=== PATIENT | female | born 1980 | race Asian ===

== ENCOUNTER 2016-11-09 14:16 | Emergency (ER) | payer MEDICAID ==
[2016-11-09 14:21] VITALS: BP 113/64
--- NOTE | 2016-11-09 14:53 | ER Document Report ---
ED Medical Screen (RME) - General Stated Complaint: THUMB INJURY Notes: Patient states she injured her right thumb this morning. [place] a pop. Patient is able to move thumb. Pain is at base of right thumb. I have greeted and performed a rapid initial assessment of this patient. A comprehensive ED assessment and evaluation of the patient, analysis of test results and completion of the medical decision making process will be conducted by additional ED providers. TRAVEL OUTSIDE OF THE [place] IN LAST 30 DAYS: No - Related Data Allergies/Adverse Reactions: No Known Allergies Allergy (Verified 11/09/16 14:52) Past Medical History Pulmonary Medical History: Reports: Hx Asthma - Pediatric Renal/ Medical History: Reports: Hx Kidney Stones Past Surgical History: Reports: Hx Tubal Ligation - Immunizations Hx Diphtheria, Pertussis, Tetanus Vaccination: No Physical Exam - Vital signs Vitals: Temp Pulse Resp BP Pulse Ox 97.5 F 88 14 113/64 100 11/09/16 14:20 11/09/16 14:20 11/09/16 14:20 11/09/16 14:20 11/09/16 14:20 - Extremities Notes: Tenderness to base of right thumb. No bruising or edema noted. Neurovascular and sensation intact. Course - Vital Signs Vital signs: Temp Pulse Resp BP Pulse Ox 97.5 F 88 14 113/64 100 11/09/16 14:20 11/09/16 14:20 11/09/16 14:20 11/09/16 14:20 11/09/16 14:20
[2016-11-09] MEDS ORDERED: HYDROCODONE/ACETAMINOPHEN 5-325 MG TABLET PO ONE (18:19)
--- NOTE | 2016-11-09 18:20 | ER Document Report ---
ED Hand/Wrist Injury - General Chief Complaint: Thumb Injury Stated Complaint: THUMB INJURY Time seen by provider: 18:16 Mode of Arrival: Ambulatory Information source: Patient Notes: 36-year-old female presents to ED for injury to her right thumb this morning. She states she was walking outside and fell landing on her from with pain to the base of her right thumb. No swelling or bruising noted at this time. TRAVEL OUTSIDE OF THE [place] IN LAST 30 DAYS: No - HPI Injury to: Thumb - Right Onset: This morning Where: Home Timing: Still present Quality of pain: Achy Severity: Moderate Pain Level: 4 Context: Fall - Related Data Allergies/Adverse Reactions: No Known Allergies Allergy (Verified 11/09/16 14:52) Past Medical History - General Information source: Patient - Social History Smoking Status: Never Smoker Cigarette use (# per day): No Chew tobacco use (# tins/day): No Smoking Education Provided: No Frequency of alcohol use: None Drug Abuse: None Occupation: housekeeping Lives with: Spouse/Significant other Family History: DM, Malignancy Patient has suicidal ideation: No Patient has homicidal ideation: No - Past Medical History Cardiac Medical History: Reports: None Pulmonary Medical History: Reports: Hx Asthma - Pediatric EENT Medical History: Reports: None Neurological Medical History: Reports: None Endocrine Medical History: Reports: Other - Gestational diabetes but not any other time Renal/ Medical History: Reports: Hx Kidney Stones Malignancy Medical History: Reports: None GI Medical History: Reports: None Musculoskeltal Medical History: Reports None Skin Medical History: Reports None Psychiatric Medical History: Reports: None Traumatic Medical History: Reports: None Infectious Medical History: Reports: None Past Surgical History: Reports: Hx Tubal Ligation - Immunizations Hx Diphtheria, Pertussis, Tetanus Vaccination: No Hx Pneumococcal Vaccination: 08/02/11 Review of Systems - Review of Systems Constitutional: No symptoms reported EENT: No symptoms reported Cardiovascular: No symptoms reported Respiratory: No symptoms reported Gastrointestinal: No symptoms reported Genitourinary: No symptoms reported Female Genitourinary: No symptoms reported Musculoskeletal: Other - Right thumb injury with pain Skin: No symptoms reported Hematologic/Lymphatic: No symptoms reported Neurological/Psychological: No symptoms reported -: Yes All other systems reviewed and negative Physical Exam - Vital signs Vitals: Temp Pulse Resp BP Pulse Ox 97.5 F 88 14 113/64 100 11/09/16 14:20 11/09/16 14:20 11/09/16 14:20 11/09/16 14:20 11/09/16 14:20 Interpretation: Normal - General General appearance: Appears well, Alert - HEENT Head: Normocephalic, Atraumatic Eyes: Normal Pupils: PERRL - Respiratory Respiratory status: No respiratory distress Chest status: Nontender Breath sounds: Normal Chest palpation: Normal - Cardiovascular Rhythm: Regular Heart sounds: Normal auscultation Murmur: No - Abdominal Inspection: Normal Distension: No distension Bowel sounds: Normal Tenderness: Nontender Organomegaly: No organomegaly - Back Back: Normal, Nontender - Extremities General upper extremity: Normal inspection, Normal color, Normal temperature General lower extremity: Normal inspection, Nontender, Normal color, Normal ROM , Normal temperature, Normal weight bearing. No: Greg's sign Hand: Tender - Right thumb, Ecchymosis - Minimal, No evidence of human bite, No evidence of FB, Other - Right thumb injury this morning minimal and ecchymosis no swelling pain with range of motion.. No: Abrasion, Deformity, Dislocation, Instability, Laceration, Nail injury, Swelling, Tendon deficit - Neurological Neuro grossly intact: Yes Cognition: Normal Orientation: AAOx4 Shelli Coma Scale Eye Opening: Spontaneous Shelli Coma Scale Verbal: Oriented Shelli Coma Scale Motor: Obeys Commands [place] Coma Scale Total: 15 Speech: Normal Motor strength normal: LUE, RUE, LLE, RLE Sensory: Normal - Psychological Associated symptoms: Normal affect, Normal mood - Skin Skin Temperature: Warm Skin Moisture: Dry Skin Color: Normal Course - Re-evaluation Re-evalutation: 11/09/16 18:44 Reviewed x-ray with patient. Patient was given a [place] in the emergency room and instructed on use of ibuprofen for pain patient encouraged to ice and elevate the finger. Patient instructed to follow-up with primary doctor. - Vital Signs Vital signs: Temp Pulse Resp BP Pulse Ox 97.5 F 88 14 113/64 100 11/09/16 14:20 11/09/16 14:20 11/09/16 14:20 11/09/16 14:20 11/09/16 14:20 - Diagnostic Test Radiology reviewed: Image reviewed, Reports reviewed Discharge - Discharge Clinical Impression: Pain of right thumb Condition: Stable Disposition: HOME, SELF-CARE Instructions: Family Physicians / Practices Additional Instructions: He was seen today for the right thumb pain after falling landing on your thumb. There is no fracture or dislocation to the thumb. ICE & ELEVATION: Apply ice packs frequently against the painful area. Many different schedules are recommended, such as "20 minutes on, 20 minutes off" or "one hour ice, two hours rest." If you need to work, you may need to go longer between ice treatments. You should plan to have the area ice packed AT LEAST one- fourth of the time. The ice should be applied over the wrap, tape, or splint, or over a layer of cloth -- not directly against the skin. Some ice bags have a built-in cloth and can be put directly on the skin. Your injured part should be elevated as much as possible over the next 48 hours. Try to keep the injury above the level of the heart. Avoid use of the injured area. Elevation and rest will decrease the swelling. USE OF LIOB-SIM-YVMGHTG IBUPROFEN: Ibuprofen (Advil, Nuprin, Medipren, Motrin IB) is a medication for fever and pain control. In addition, it has anti- inflammatory effects which may be beneficial, especially in the treatment of injuries. It's best to take ibuprofen with food. Persons with ulcer disease or allergy to aspirin should notify their physician of this before taking ibuprofen. Ibuprofen can be given every four to six hours, for a total of four doses daily. Age Pain or fever dose Antiinflammatory dose 6-8 yr 200 mg (1 tab) 200 mg (1 tab) 9-11 yr 200 mg (1 tab) 200-400 mg (1-2 tab) 11-14 yr 200-400 mg (1-2 tab) 400 mg (2 tab) 15-adult 400 mg (2 tab) 600 mg (3 tab) ORAL NARCOTIC MEDICATION: You have been given a norco for pain control. This medication is a narcotic. It's best taken with food, as nausea can result if taken on an empty stomach. Don't operate machinery or drive within six hours of taking this medication. Do not combine this medicine with alcohol, or with any medication which can cause sedation (such as cold tablets or sleeping pills) unless you get permission from the physician. Narcotics tend to cause constipation. If possible, drink plenty of fluids and eat a diet high in fiber and fruits. Please be aware that prescription narcotics also have the potential for abuse. People become addicted to these medications because of the general sense of wellbeing that they induce. This feeling along with a significant reduction in tension, anxiety, and aggression provides a stimulating seductive quality to these drugs. Once your pain is under control, we encourage you to discard your unused narcotics. FOLLOW-UP CARE: If you have been referred to a physician for follow-up care, call the physician s office for an appointment as you were instructed or within the next two days. If you experience worsening or a significant change in your symptoms, notify the physician immediately or return to the Emergency Department at any time for re-evaluation. Forms: Return to Work
== END 2016-11-09 18:30 | disposition home or self-care (01) ==
LOC: ER 14:16
DX: S60.011A Contusion of right thumb without damage to nail, initial encounter (principal); M79.644 Pain in right finger(s); W19.XXXA Unspecified fall, initial encounter; Y92.008 Other place in unspecified non-institutional (private) residence as the place of occurrence of the external cause
CPT/HCPCS: 99283

== ENCOUNTER 2016-12-27 15:38 | Emergency (ER) | payer MEDICAID ==
[2016-12-27 15:48] VITALS: BP 116/58
[2016-12-27 18:35] LABS: ABSOLUTE BASOPHILS # (AUTO) 0.1 10^3/uL (0.0-0.2); ABSOLUTE EOSINOPHILS # (AUTO) 0.1 10^3/uL (0.0-0.6); ABSOLUTE LYMPHOCYTES (AUTO) 2.1 10^3/uL (0.5-4.7); ABSOLUTE MONOCYTES (AUTO) 0.5 10^3/uL (0.1-1.4); ABSOLUTE NEUT (AUTO) 5.6 10^3/uL (1.7-8.2); BASOPHILS % (AUTO) 0.9 % (0-2); EOSINOPHILS % (AUTO) 1.7 % (0-6); HEMATOCRIT 36.5 % (36.0-47.0); HEMOGLOBIN 12.6 g/dL (12.0-15.5); HGB HCT DIFFERENCE 1.3; LYMPHOCYTES % (AUTO) 25.1 % (13-45); MEAN CORPUSCULAR HEMOGLOBIN 31.6 pg (27.0-33.4); MEAN CORPUSCULAR HGB CONC 34.4 g/dL (32.0-36.0); MEAN CORPUSCULAR VOLUME 92 fl (80-97); MONOCYTES % (AUTO) 5.4 % (3-13); RED BLOOD COUNT 3.97 10^6/uL (3.72-5.28); RED CELL DISTRIBUTION WIDTH 13.2 % (11.5-14.0); SEGMENTED NEUTROPHILS % (AUTO) 66.9 % (42-78); WHITE BLOOD COUNT 8.4 10^3/uL (4.0-10.5)
[2016-12-27 18:46] LABS: APPEARANCE,URINE CLEAR; BILIRUBIN,URINE NEGATIVE (NEGATIVE); GLUCOSE, URINE NEGATIVE (NEGATIVE); KETONES,URINE NEGATIVE (NEGATIVE); LEUKOCYTE ESTERASE,URINE NEGATIVE (NEGATIVE); NITRITE,URINE NEGATIVE (NEGATIVE); PROTEIN,URINE NEGATIVE (NEGATIVE); URINE SPECIFIC GRAVITY 1.009; UROBILINOGEN,URINE NEGATIVE mg/dL (<2.0)
[2016-12-27 18:49] LABS: ALANINE AMINOTRANSFERASE 32 U/L (9-52); ALKALINE PHOSPHATASE 52 U/L (38-126); ANION GAP 10 (5-19); ASPARTATE AMINO TRANSFERASE 19 U/L (14-36); BILIRUBIN,DIRECT 0.3 mg/dL (0.0-0.4); BILIRUBIN,TOTAL 0.6 mg/dL (0.2-1.3); BLOOD UREA NITROGEN 12 mg/dL (7-20); CARBON DIOXIDE 27 mmol/L (22-30); CHLORIDE 105 mmol/L (98-107); CREATININE RESULT 0.63 mg/dL (0.52-1.25); GLUCOSE 109 mg/dL (75-110); POTASSIUM 3.9 mmol/L (3.6-5.0); SODIUM 142.3 mmol/L (137-145); TOTAL PROTEIN 7.2 g/dL (6.3-8.2)
[2016-12-27] MEDS ORDERED: ONDANSETRON ODT 4 MG TAB (6 TAB/DSPK) PO PRN (18:55)
--- NOTE | 2016-12-27 18:57 | ER Document Report ---
ED GI/ - General Chief Complaint: Abdominal Pain Stated Complaint: ABDOMINAL PAIN Time seen by provider: 18:56 Mode of Arrival: Ambulatory Information source: Patient TRAVEL OUTSIDE OF THE [place] IN LAST 30 DAYS: No - HPI Patient complains to provider of: Vomiting Onset: Yesterday Timing/Duration: Sudden Quality of pain: No pain Associated symptoms: Nausea Exacerbated by: Denies Relieved by: Denies Notes: 12/27/16 20:08 Patient is a 36-year-old female with no past medical history who presents to the emergency room complaining of vomiting that started yesterday evening, she had 3 episodes of vomiting, abdominal pain, no diarrhea, no fever or chills, no sick contacts, no urinary symptoms, since being in the emergency room she ate a bag of [place] chips and drank Pepsi without any difficulty, and is requesting note to return to work tomorrow as she missed work today - Related Data Allergies/Adverse Reactions: No Known Allergies Allergy (Verified 12/27/16 15:45) Past Medical History - General Information source: Patient - Social History Smoking Status: Never Smoker Family History: Reviewed & Not Pertinent Patient has suicidal ideation: No Patient has homicidal ideation: No Pulmonary Medical History: Reports: Hx Asthma - Pediatric Renal/ Medical History: Reports: Hx Kidney Stones. Denies: Hx Peritoneal Dialysis Past Surgical History: Reports: Hx Tubal Ligation - Immunizations Hx Diphtheria, Pertussis, Tetanus Vaccination: No Hx Pneumococcal Vaccination: 08/02/11 Review of Systems - Review of Systems Constitutional: No symptoms reported EENT: No symptoms reported Cardiovascular: No symptoms reported Respiratory: No symptoms reported Gastrointestinal: Nausea, Vomiting Genitourinary: No symptoms reported Female Genitourinary: No symptoms reported Musculoskeletal: No symptoms reported Skin: No symptoms reported Hematologic/Lymphatic: No symptoms reported Neurological/Psychological: No symptoms reported -: Yes All other systems reviewed and negative Physical Exam - Vital signs Vitals: Temp Pulse Resp BP Pulse Ox 98.2 F 87 14 116/58 L 98 12/27/16 15:45 12/27/16 15:45 12/27/16 15:45 12/27/16 15:45 12/27/16 15:45 Interpretation: Normal - General General appearance: Appears well, Alert - HEENT Head: Normocephalic, Atraumatic Eyes: Normal Pupils: PERRL - Respiratory Respiratory status: No respiratory distress Chest status: Nontender Breath sounds: Normal Chest palpation: Normal - Cardiovascular Rhythm: Regular Heart sounds: Normal auscultation Murmur: No - Abdominal Inspection: Normal Distension: No distension Bowel sounds: Normal Tenderness: Nontender Organomegaly: No organomegaly - Back Back: Normal, Nontender - Extremities General upper extremity: Normal inspection, Nontender, Normal color, Normal ROM , Normal temperature General lower extremity: Normal inspection, Nontender, Normal color, Normal ROM , Normal temperature, Normal weight bearing. No: Greg's sign - Neurological Neuro grossly intact: Yes Cognition: Normal Orientation: AAOx4 [place] Coma Scale Eye Opening: Spontaneous Shelli Coma Scale Verbal: Oriented Shelli Coma Scale Motor: Obeys Commands [place] Coma Scale Total: 15 Speech: Normal Motor strength normal: LUE, RUE, LLE, RLE Sensory: Normal - Psychological Associated symptoms: Normal affect, Normal mood - Skin Skin Temperature: Warm Skin Moisture: Dry Skin Color: Normal Course - Re-evaluation Re-evalutation: 12/27/16 20:09 Laboratory findings unremarkable and discussed with patient at bedside, physical exam findings unremarkable, she is tolerating by mouth intake at time of my initial evaluation, patient will be discharged with a Zofran dose pack and instructions for follow-up, advised to return if symptoms worsen, patient acknowledges understanding and agreement with this plan - Vital Signs Vital signs: Temp Pulse Resp BP Pulse Ox 98.2 F 87 14 116/58 L 98 12/27/16 15:45 12/27/16 15:45 12/27/16 15:45 12/27/16 15:45 12/27/16 15:45 - Laboratory Result Diagrams: 12/27/16 18:07 12/27/16 18:07 Discharge - Discharge Clinical Impression: Nausea and vomiting Qualifiers: Vomiting type: unspecified Vomiting Intractability: non-intractable Qualified Code(s): R11.2 - Nausea with vomiting, unspecified Condition: Stable Disposition: HOME, SELF-CARE Instructions: Abdominal Pain ([facility]) Additional Instructions: Follow up with your primary care provider in one to 2 days. Return to the emergency room immediately if symptoms worsen or any additional concerns. Forms: Return to Work
== END 2016-12-27 20:03 | disposition home or self-care (01) ==
LOC: ER 15:38
DX: R11.2 Nausea with vomiting, unspecified (principal); R10.9 Unspecified abdominal pain
CPT/HCPCS: 36415; 80053; 81001; 81025; 83690; 85025; 99284

== ENCOUNTER 2017-03-05 18:59 | Emergency (ER) | payer SELFPAY ==
[2017-03-05] MEDS ORDERED: HYDROCORTISONE ACETATE 25 MG SUPP.RECT PR ONE (19:50)
--- NOTE | 2017-03-05 19:55 | ER Document Report ---
HPI - HPI Patient complains to provider of: hemorrhoids Onset: Other - 3rd hemorrhoid in 2 few months Quality of pain: Achy Severity: Severe Pain Level: 4 Context: Patient presents emergency department with complaints of a third hemorrhoid in the past 2 months. She reports today while she was at work she had a bowel movement and noted blood in the bowel movement. Reports she had a normal bowel movement. She reports pain when sitting. She has not tried any over-the- counter hemorrhoid medication. She reports she had hemorrhoids when she was . She complains of low back pain today. Took tylenol pm but is still hurting. Denies fever vomiting diarrhea. Denies history of constipation. Associated Symptoms: None Exacerbated by: Denies Relieved by: Denies Similar symptoms previously: Yes Recently seen / treated by doctor: No - REPRODUCTIVE LMP: 25 February Reproductive: DENIES: : - DERM Skin Color: Normal Past Medical History - General Information source: Patient Last Menstrual Period: 02/25/17 - Social History Smoking Status: Unknown if Ever Smoked Cigarette use (# per day): No Frequency of alcohol use: None Drug Abuse: None Family History: Reviewed & Not Pertinent Patient has suicidal ideation: No Patient has homicidal ideation: No Pulmonary Medical History: Reports: Hx Asthma - Pediatric Renal/ Medical History: Reports: Hx Kidney Stones. Denies: Hx Peritoneal Dialysis Past Surgical History: Reports: Hx Tubal Ligation - Immunizations Hx Diphtheria, Pertussis, Tetanus Vaccination: No Hx Pneumococcal Vaccination: 08/02/11 Vertical Provider Document - CONSTITUTIONAL Agree With Documented VS: Yes Exam Limitations: No Limitations General Appearance: WD/WN, Mild Distress - winces during rectal - INFECTION CONTROL TRAVEL OUTSIDE OF THE [place] IN LAST 30 DAYS: No - HEENT HEENT: Atraumatic, Normocephalic - NECK Neck: Normal Inspection, Supple. negative: Lymphadenopathy-Left, Lymphadenopathy-Right - RESPIRATORY Respiratory: Breath Sounds Normal, No Respiratory Distress O2 Sat by Pulse Oximetry: 98 - CARDIOVASCULAR Cardiovascular: Regular Rate, Regular Rhythm - GI/ABDOMEN Gastrointestinal: Abdomen Soft, Abdomen Non-Tender - BACK Back: Normal Inspection - no obvious deformity, no swelling, no erythema, no warmth, good distal movement and sensation - MUSCULOSKELETAL/EXTREMETIES Musculoskeletal/Extremeties: VINNY COLLADO - NEURO Level of Consciousness: Awake, Alert, Appropriate Motor/Sensory: No Motor Deficit - DERM Integumentary: Warm, Dry Course - Re-evaluation Re-evalutation: 03/05/17 19:57 Rectal completed external hemorrhoids noted no thrombosed hemorrhoids, no active bleeding occult blood card sent to lab 03/05/17 21:44 stool negative - Vital Signs Vital signs: Temp Pulse Resp BP Pulse Ox 98.1 F 99 16 117/73 98 03/05/17 19:12 03/05/17 19:12 03/05/17 19:12 03/05/17 19:12 03/05/17 19:12 Discharge - Discharge Clinical Impression: Hemorrhoids Qualifiers: Hemorrhoid type: other Qualified Code(s): K64.8 - Other hemorrhoids Condition: Stable Disposition: HOME, SELF-CARE Instructions: Hemorrhoids ([facility]) Additional Instructions: *You have been evaluated for hemorrhoids *Apply medication as prescribed *Sitz baths for comfort *Follow up with a cognos for evaluation this week *Return to ED for worsening condition, changes, needs Prescriptions: Pramoxine HCl/Mineral Oil/Znox [Anusol Ointment] 24 gm RC TID #30 oint..gm.
[2017-03-05] MEDS ORDERED: IBUPROFEN 800 MG TABLET PO ONE (20:09)
[2017-03-05 20:33] VITALS: BP 107/74
== END 2017-03-05 20:26 | disposition home or self-care (01) ==
LOC: ER 18:59
DX: K64.4 Residual hemorrhoidal skin tags (principal); K92.1 Melena; M54.5 Low back pain
CPT/HCPCS: 99283; 82272; J3490

== ENCOUNTER 2017-05-27 08:15 | Emergency (ER) | payer SELFPAY ==
--- NOTE | 2017-05-27 08:58 | ER Document Report ---
ED ENT - General Mode of Arrival: Ambulatory Information source: Patient TRAVEL OUTSIDE OF THE [place] IN LAST 30 DAYS: No - HPI Patient complains to provider of: Other - see narrative Onset: Other - x2 days Associated symptoms: Other - see above - General Chief Complaint: Sore Throat Stated Complaint: SORE THROAT Time Seen by Provider: 05/27/17 08:44 Notes: Patient is a 37-year-old female that presents to the emergency department today with complaints of generalized body aches with an associated headache, shortness of breath, and nasal congestion of a 2 day duration. Patient states she has tried [id number] Excedrin with minimal relief. Patient states she has a history of asthma and pneumonia. Patient states she feels like she is losing her voice. Patient states that it also hurts to breathe. Patient denies any earaches, sweats, chills, or fevers. (SARAH SMITH) - Related Data Allergies/Adverse Reactions: No Known Allergies Allergy (Verified 05/27/17 08:17) Past Medical History - General Information source: Patient - Social History Smoking Status: Never Smoker Cigarette use (# per day): No Frequency of alcohol use: None Drug Abuse: None Lives with: Family Family History: Reviewed & Not Pertinent Pulmonary Medical History: Reports: Hx Asthma - Pediatric, Hx Pneumonia Renal/ Medical History: Reports: Hx Kidney Stones Past Surgical History: Reports: Hx Tubal Ligation - Immunizations Hx Diphtheria, Pertussis, Tetanus Vaccination: No Hx Pneumococcal Vaccination: 08/02/11 Review of Systems - Review of Systems Constitutional: denies: Chills, Diaphoresis, Fever EENT: See HPI, Nose congestion. denies: Ear pain Cardiovascular: No symptoms reported Respiratory: See HPI, Hurts to breathe, Short of breath Gastrointestinal: No symptoms reported Genitourinary: No symptoms reported Female Genitourinary: No symptoms reported Musculoskeletal: See HPI, Joint pain - generalized, diffuse Skin: No symptoms reported Hematologic/Lymphatic: No symptoms reported Neurological/Psychological: See HPI, Headaches -: Yes All other systems reviewed and negative Physical Exam - Vital signs Vitals: Temp Pulse Resp BP Pulse Ox 97.7 F 86 20 113/64 97 05/27/17 08:18 05/27/17 08:18 05/27/17 08:18 05/27/17 08:18 05/27/17 08:18 - Notes Notes: PHYSICAL EXAM GENERAL: Alert, interacts well. No acute distress. HEAD: Normocephalic, atraumatic. EYES: Pupils equal, round, and reactive to light. Extraocular movements intact. ENT: Oral mucosa moist, tongue midline. TM bulging bilaterally, no erythema or purulent drainage. Left sided turbinate edema. No oropharynx cobblestoning. NECK: Full range of motion. Supple. Trachea midline. LUNGS: Trace wheezing with forced expiration, no rales or rhonchi. No respiratory distress. HEART: Mildly tachycardic, regular rhythm. No murmurs, gallops, or rubs. ABDOMEN: Obese. Soft, non-tender. Non-distended. Bowel sounds present in all 4 quadrants. EXTREMITIES: Moves all 4 extremities spontaneously. NEUROLOGICAL: Alert and oriented x3. Normal speech. PSYCH: Normal affect, normal mood. SKIN: Warm, dry, normal turgor. No rashes or lesions noted. (SARAH SMITH) Course - Re-evaluation Re-evalutation: 05/27/17 09:32 Chest x-ray shows no sign of pneumonia. Patient given albuterol inhaler. Patient will be treated for viral upper respiratory infection with nasal steroids, albuterol inhaler and Tessalon Perles. Counseled to use ibuprofen and acetaminophen for muscle aches and headaches. Discharged home. (ALYSSA RUCKER) - Vital Signs Vital signs: Temp Pulse Resp BP Pulse Ox 97.6 F 86 17 109/64 100 05/27/17 10:19 05/27/17 10:19 05/27/17 10:19 05/27/17 10:19 05/27/17 10:19 Discharge - Discharge Clinical Impression: Viral upper respiratory tract infection with cough Condition: Stable Disposition: HOME, SELF-CARE Additional Instructions: Bronchitis with Bronchospasm (Wheezing) You have bronchitis with bronchospasm (wheezing). Sometimes people develop wheezing with a chest cold. This occurs either because of an underlying tendency toward asthma or because the virus itself irritates the bronchial tubes. This irritation causes cough, shortness of breath, and wheezing. Emergency treatment of bronchospasm may include adrenaline shots or bronchodilator aerosol. You may feel lightheaded and have a rapid pulse for an hour or two. Rest and get plenty of fluids. At home, we'll treat you with a bronchodilator inhaler. Corticosteroids may be required for some patients. Until you recover, avoid chemical fumes, dusts, pollens, and exercising in very cold or dry air. If you smoke, stop now! Most cases of bronchitis get better without antibiotics. Increase your fluid intake. A cool mist humidifier may make your lungs more comfortable. An expectorant (cough medicine that loosens phlegm) can help. Repeated episodes of bronchitis and bronchospasm may result in lung damage -- for example, chronic bronchitis, recurrent pneumonias, or emphysema. If you develop a fever, increased wheezing, chest pain, or severe shortness of breath, you should contact the doctor immediately. Please use ibuprofen (Motrin or Advil) 600-800 mg every 8 hours as needed for pain or fever. You may also use acetaminophen (Tylenol) 1000 mg every 4-6 hours as needed for pain or fever. Please be aware that many medications contain acetaminophen, do not exceed a total of 1000 mg of acetaminophen every 6 hours. Please use the inhaler 2 puffs as needed every 4 hours. Prescriptions: Benzonatate [Tessalon Perles 100 mg Capsule] 100 mg PO Q8HP PRN #40 capsule PRN Reason: Forms: Parent Work Note, Return to Work Referrals: ANDRES HSU MD [ACTIVE STAFF] - Follow up in 1 week Scribe Attestation: 05/27/17 14:25 I personally performed the services described in the documentation, reviewed and edited the documentation which was dictated to the scribe in my presence, and it accurately records my words and actions. (ALYSSA RUCKER) Scribe Documentation - Scribe Written by Mirta:: Mirta Pace, 05/27/2017 0945 acting as scribe for :: Candis
[2017-05-27] MEDS ORDERED: ALBUTEROL SULFATE HFA (90 MCG/PUFF) 8 GM MDI (1 MDI/ER DISP) IH ONE (09:01)
--- NOTE | 2017-05-27 09:25 | RADIOLOGY REPORT (SQ) ---
EXAM DESCRIPTION: CHEST PA/LAT COMPLETED DATE/TIME: 05/27/2017 9:15 am REASON FOR STUDY: cough, wheeze COMPARISON: Two-view chest 11/28/2015, 01/29/2015 EXAM PARAMETERS: NUMBER OF VIEWS: two views TECHNIQUE: Digital Frontal and Lateral radiographic views of the chest acquired. RADIATION DOSE: NA LIMITATIONS: none FINDINGS: LUNGS AND PLEURA: No opacities, masses or pneumothorax. No pleural effusion. MEDIASTINUM AND HILAR STRUCTURES: No masses or contour abnormalities. HEART AND VASCULAR STRUCTURES: Heart normal size. No evidence for failure. BONES: No acute findings. HARDWARE: None in the chest. OTHER: No other significant finding. IMPRESSION: NO SIGNIFICANT RADIOGRAPHIC FINDING IN THE CHEST. TECHNICAL DOCUMENTATION: JOB ID: [id number] [employer]- All Rights Reserved
[2017-05-27] MEDS ORDERED: KETOROLAC TROMETHAMINE 60 MG/2 ML SDV IM ONE (09:38)
[2017-05-27 10:24] VITALS: BP 109/64
== END 2017-05-27 10:19 | disposition home or self-care (01) ==
LOC: ER 08:15
DX: R05 Cough (principal); B34.9 Viral infection, unspecified; J06.9 Acute upper respiratory infection, unspecified; J02.9 Acute pharyngitis, unspecified; M79.1 Myalgia; R51 Headache; R06.02 Shortness of breath; R09.81 Nasal congestion; Z79.899 Other long term (current) drug therapy
CPT/HCPCS: 99283; 96372; 71020; J1885; J3490

== ENCOUNTER 2017-12-09 15:30 | Emergency (ER) | payer SELFPAY ==
[2017-12-09] MEDS ORDERED: LIDOCAINE 2% JELLY 5 ML TUBE TOP ONE (17:34)
--- NOTE | 2017-12-09 17:34 | ER Document Report ---
HPI - HPI Pain Level: 4 Context: An issue with her hemorrhoids. Patient states that she has had them on and off in the past over the past 3 days this 1 has become more painful with more pressure. She denies any bright red blood per rectum. States that she has been doing warm soaks and [id number] preparation H cream at home. - REPRODUCTIVE Reproductive: DENIES: : Past Medical History - Social History Smoking Status: Smoker,Current Status Unk Family History: Reviewed & Not Pertinent Pulmonary Medical History: Reports: Hx Asthma - Pediatric, Hx Pneumonia Renal/ Medical History: Reports: Hx Kidney Stones. Denies: Hx Peritoneal Dialysis Past Surgical History: Reports: Hx Tubal Ligation - Immunizations Hx Diphtheria, Pertussis, Tetanus Vaccination: No Hx Pneumococcal Vaccination: 08/02/11 Vertical Provider Document - CONSTITUTIONAL Agree With Documented VS: Yes Notes: PHYSICAL EXAM GENERAL: Alert, interacts well. ABDOMEN: Soft, nondistended, nontender. No guarding, rebound, or rigidity.. Bowel sounds present in all 4 quadrants. Rectal: Patient with 1 external nontender hemorrhoids. Another smaller thrombosed external hemorrhoid that is tender to touch. NEUROLOGICAL: Alert and oriented x4. Normal speech. PSYCH: Normal affect, normal mood. SKIN: Warm, dry, normal turgor. No rashes or lesions noted. - INFECTION CONTROL TRAVEL OUTSIDE OF THE [place] IN LAST 30 DAYS: No Course - Re-evaluation Re-evalutation: 12/09/17 18:19 Presentation is most consistent with uncomplicated external thrombosed hemorrhoids. Site was I&D with complete relief of her pain. Patient's abdominal exam is otherwise benign. I do not suspect a more significant lower GI bleed or upper GI bleed based on history, vitals, normal hemoglobin, and patient's overall well appearance. The patient will be discharged home on conservative treatment recommendations as well as recommendations for close outpatient follow-up. Return precautions have been reviewed. - Vital Signs Vital signs: Temp Pulse Resp BP Pulse Ox 98.0 F 93 18 111/66 99 12/09/17 15:55 12/09/17 15:55 12/09/17 15:55 12/09/17 15:55 12/09/17 15:55 Discharge - Discharge Clinical Impression: Thrombosed hemorrhoids Condition: Good Disposition: HOME, SELF-CARE Additional Instructions: You were seen today for hemorrhoids. The best treatment is to avoid straining while having bowel moments, avoiding heavy lifting, or any other activity that causes you to bear down forcefully. You need to make sure that your stools are soft and should start taking Docusate 200mg in the morning and at night until your stools are very soft and you can have a bowel movement without any straining. You can also soak in warm water, apply topical hemorrhoid cream that can be purchased at the store, and take tylenol or ibuprofen per box instructions as needed for pain. Please follow-up with your primary doctor. Return if you begin to have persistent bleeding, worsening pain, abdominal pain , fever >101, or any other symptoms that are concerning to you. Prescriptions: Hydrocortisone Acetate [Anusol Hc 25 mg Supp.rect] 1 supp.rect TN BID #14 supp.rect Referrals: SEDA REED MD [ACTIVE STAFF] - Follow up in 3-5 days
[2017-12-09 18:43] VITALS: BP 132/88
== END 2017-12-09 18:43 | disposition home or self-care (01) ==
LOC: ER 15:30
DX: K64.5 Perianal venous thrombosis (principal); K64.4 Residual hemorrhoidal skin tags
CPT/HCPCS: 99283

== ENCOUNTER 2020-01-12 22:24 | Emergency (ER) | payer OTHER ==
[2020-01-12] MEDS ORDERED: HYDROCODONE/ACETAMINOPHEN 5-325 MG TABLET PO ONE (22:47)
--- NOTE | 2020-01-12 22:50 | ER Document Report ---
ED Medical Screen (RME) - General Chief Complaint: Abdominal Pain Stated Complaint: FLANK PAIN Time Seen by Provider: 01/12/20 22:47 Mode of Arrival: Ambulatory Information source: Patient Notes: 39-year-old female presented to ED for complaint of left pelvic and back pain. She states she started 3 days ago. She states she has a history of kidney stones. She states her last menstrual period was December 28. She states she went to her primary care doctor and they gave her some kind of medicine that started with a tea intake and she was told that if this did not help she was to come to the emergency room. She states she also took some Motrin 400 mg about an hour ago. Patient is alert oriented respirations regular nonlabored speaking in full sentences. She is moving all around in the chair. I have given her 1 [place] in the triage area for her pain. I have greeted and performed a rapid initial assessment of this patient. A comprehensive ED assessment and evaluation of the patient, analysis of test results and completion of medical decision making process will be conducted by an additional ED providers. TRAVEL OUTSIDE OF THE [place] IN LAST 30 DAYS: No - Related Data Allergies/Adverse Reactions: No Known Allergies Allergy (Verified 12/09/17 18:40) Past Medical History - Social History Frequency of alcohol use: None Drug Abuse: None Pulmonary Medical History: Reports: Hx Asthma - Pediatric, Hx Pneumonia Renal/ Medical History: Reports: Hx Kidney Stones. Denies: Hx Peritoneal Dialysis Past Surgical History: Reports: Hx Tubal Ligation - Immunizations Hx Diphtheria, Pertussis, Tetanus Vaccination: No Physical Exam - Vital signs Vitals: Temp Pulse Resp BP Pulse Ox 98.2 F 97 20 117/67 99 01/12/20 22:28 01/12/20 22:28 01/12/20 22:28 01/12/20 22:28 01/12/20 22:28 Course - Vital Signs Vital signs: Temp Pulse Resp BP Pulse Ox 98.2 F 97 20 117/67 99 01/12/20 22:39 01/12/20 22:28 01/12/20 22:28 01/12/20 22:28 01/12/20 22:28
[2020-01-12] MEDS ORDERED: NORMAL SALINE 1000 ML 1,000 ML IV ONE (23:01)
--- NOTE | 2020-01-12 23:09 | ER Document Report ---
ED GI/ - General Mode of Arrival: Ambulatory Information source: Patient TRAVEL OUTSIDE OF THE [place] IN LAST 30 DAYS: No - HPI Patient complains to provider of: Flank pain - Probable kidney stone Onset: Other Timing/Duration: Gradual, Intermittent Quality of pain: No pain, Sharp, Throbbing Severity at maximum: Moderate Severity in ED: Moderate Pain Level: 3 Location: LLQ, Left flank Vaginal bleeding (Compared to normal period): None Associated symptoms: Other - Left flank pain. denies: Nausea, Vomiting Exacerbated by: Movement, Walking Relieved by: Denies Similar symptoms previously: Yes Recently seen / treated by doctor: Yes <CASEY KULKARNI - Last Filed: 01/13/20 00:24> <KILEY HERNDON - Last Filed: 01/13/20 05:02> - General Chief Complaint: Abdominal Pain Stated Complaint: FLANK PAIN Time Seen by Provider: 01/12/20 22:47 Notes: 9-year-old female presented to ED for complaint of left flank and abdominal pain. Started 3 days ago. She does seen by her primary care provider who gave her some kind of pain medication that starts with a T. She states she is not sure if it was tramadol or not. She states it was supposed to help her with the pain but he told her that if this did not relieve her pain she needed to go to the emergency room. She is alert oriented respirations regular nonlabored speaking in full sentences. She states her last menstrual period started on December 28. She states she did take ibuprofen about an hour before coming to the emergency room. (CASEY KULKARNI) - Related Data Allergies/Adverse Reactions: No Known Allergies Allergy (Verified 12/09/17 18:40) Past Medical History - General Information source: Patient - Social History Smoking Status: Never Smoker Frequency of alcohol use: None Drug Abuse: None Family History: Reviewed & Not Pertinent Patient has homicidal ideation: No - Past Medical History Cardiac Medical History: Reports: None Pulmonary Medical History: Reports: Hx Asthma - Pediatric, Hx Pneumonia EENT Medical History: Reports: None Neurological Medical History: Reports: None Endocrine Medical History: Reports: None Renal/ Medical History: Reports: Hx Kidney Stones Malignancy Medical History: Reports: None GI Medical History: Reports: None Musculoskeletal Medical History: Reports None Skin Medical History: Reports None Psychiatric Medical History: Reports: None Traumatic Medical History: Reports: None Infectious Medical History: Reports: None Past Surgical History: Reports: Hx Tubal Ligation - Immunizations Hx Diphtheria, Pertussis, Tetanus Vaccination: No Hx Pneumococcal Vaccination: 08/02/11 <CASEY KULKARNI - Last Filed: 01/13/20 00:24> Review of Systems - Review of Systems Constitutional: No symptoms reported EENT: No symptoms reported Cardiovascular: No symptoms reported Respiratory: No symptoms reported Gastrointestinal: No symptoms reported Genitourinary: Flank pain Female Genitourinary: No symptoms reported Musculoskeletal: No symptoms reported Skin: No symptoms reported Hematologic/Lymphatic: No symptoms reported Neurological/Psychological: No symptoms reported -: Yes All other systems reviewed and negative <CASEY KULKARNI - Last Filed: 01/13/20 00:24> Physical Exam - Vital signs Interpretation: Normal - General General appearance: Appears well, Alert - HEENT Head: Normocephalic, Atraumatic Eyes: Normal Pupils: PERRL - Respiratory Respiratory status: No respiratory distress Chest status: Nontender Breath sounds: Normal Chest palpation: Normal - Cardiovascular Rhythm: Regular Heart sounds: Normal auscultation Murmur: No - Abdominal Inspection: Normal Distension: No distension Bowel sounds: Normal Tenderness: Tender - Left lower left flank Organomegaly: No organomegaly - Back Back: Normal, Tender - Left flank, CVA tenderness - Left - Extremities General upper extremity: Normal inspection, Nontender, Normal color, Normal ROM, Normal temperature General lower extremity: Normal inspection, Nontender, Normal color, Normal ROM, Normal temperature, Normal weight bearing. No: Greg's sign - Neurological Neuro grossly intact: Yes Cognition: Normal Orientation: AAOx4 Shelli Coma Scale Eye Opening: Spontaneous [place] Coma Scale Verbal: Oriented Shelli Coma Scale Motor: Obeys Commands Shelli Coma Scale Total: 15 Speech: Normal Motor strength normal: LUE, RUE, LLE, RLE Sensory: Normal - Psychological Associated symptoms: Normal affect, Normal mood - Skin Skin Temperature: Warm Skin Moisture: Dry Skin Color: Normal <CASEY KULKARNI - Last Filed: 01/13/20 00:24> - Vital signs Vitals: Temp Pulse Resp BP Pulse Ox 98.2 F 97 20 117/67 99 01/12/20 22:28 01/12/20 22:28 01/12/20 22:28 01/12/20 22:28 01/12/20 22:28 Course - Laboratory Result Diagrams: 01/12/20 23:04 01/12/20 23:04 <CASEY KULKARNI - Last Filed: 01/13/20 00:24> - Laboratory Result Diagrams: 01/12/20 23:04 01/12/20 23:04 <KILEY HERNDON - Last Filed: 01/13/20 05:02> - Re-evaluation Re-evalutation: 01/13/20 00:24 Patient states she is still in pain from her 8 mm kidney stone. I have ordered morphine Toradol IV she has been ordered IV fluids. I did add some Flomax. Report given to INDERJIT Camargo. (CASEY KULKARNI) 01/13/20 04:57 Multiple re-evaluations have been done on this patient, additional rounds of IV pain medication have been given. Patient's pain is now under control. She has not had a fever, she has no leukocytosis and her urine does not appear infected. We have discussed extensively the fact that she may need lithotripsy or intervention by a urologist to help this kidney stone pass due to its size. Patient will be discharged home with very strict ED return precautions. She will be calling urology today to follow-up. She understands to return to the emergency department with worsening pain, development of fever or any other concerning symptoms. (KILEY HERNDON) - Vital Signs Vital signs: Temp Pulse Resp BP Pulse Ox 97.7 F 84 19 116/59 L 95 01/13/20 03:24 01/13/20 03:24 01/13/20 03:24 01/13/20 03:24 01/13/20 04:00 - Laboratory Laboratory results interpreted by me: 01/12/20 01/12/20 01/12/20 23:04 23:04 23:04 WBC 11.2 H Sodium 136.9 L Glucose 113 H Urine Blood MODERATE H Leukocyte Esterase Rfl SMALL H Discharge <CASEY KULKARNI - Last Filed: 01/13/20 00:24> <KILEY HERNDON - Last Filed: 01/13/20 05:02> - Discharge Clinical Impression: Kidney stone Condition: Stable Disposition: HOME, SELF-CARE Additional Instructions: Your symptoms should improve over the course of the next one week. If you continue to have pain for greater than one week or your pain is not controlled with the pain medications that you have been sent home with you need to return to the emergency department. Please also return if you develop fever, persistent vomiting, or any other symptoms that are concerning to you. You should take ibuprofen 600 mg every 6 hours and use the Percocet as prescribed only for pain not controlled by ibuprofen. You are also been sent home with a medication called Flomax to help pass the stone. You've been given Zofran to assist with nausea. Please follow-up with urology call them today, let them know you were seen in the emergency department and have a 8 mm kidney stone. Prescriptions: Tamsulosin HCl [Flomax] 0.4 mg PO DAILY #7 cap.er.24h Oxycodone HCl/Acetaminophen [Percocet 5-325 mg Tablet] 1 - 2 tab PO Q6H PRN #15 tablet PRN Reason: Ondansetron [Zofran Odt 4 mg Tablet] 1 - 2 tab PO Q4H PRN #15 tab.rapdis PRN Reason: For Nausea/Vomiting Forms: Return to Work Referrals: ROBINSON BILLS MD [NO LOCAL MD] - Follow up as needed
[2020-01-12 23:18] LABS: ABSOLUTE BASOPHILS # (AUTO) 0.1 10^3/uL (0.0-0.2); ABSOLUTE EOSINOPHILS # (AUTO) 0.3 10^3/uL (0.0-0.6); ABSOLUTE LYMPHOCYTES (AUTO) 2.9 10^3/uL (0.5-4.7); ABSOLUTE MONOCYTES (AUTO) 0.8 10^3/uL (0.1-1.4); ABSOLUTE NEUT (AUTO) 7.1 10^3/uL (1.7-8.2); BASOPHILS % (AUTO) 1.1 % (0-2); HEMATOCRIT 37.4 % (36.0-47.0); HEMOGLOBIN 13.1 g/dL (12.0-15.5); LYMPHOCYTES % (AUTO) 26.1 % (13-45); MEAN CORPUSCULAR HEMOGLOBIN 31.5 pg (27.0-33.4); MEAN CORPUSCULAR VOLUME 90 fl (80-97); MONOCYTES % (AUTO) 6.7 % (3-13); PLATELET COUNT 279 10^3/uL (150-450); RED BLOOD COUNT 4.15 10^6/uL (3.72-5.28); RED CELL DISTRIBUTION WIDTH 12.8 % (11.5-14.0); SEGMENTED NEUTROPHILS % (AUTO) 63.1 % (42-78); TOTAL CELLS COUNTED % (AUTO) 100 %; WHITE BLOOD COUNT 11.2 10^3/uL (4.0-10.5)
[2020-01-12 23:29] LABS: APPEARANCE,URINE CLEAR; BILIRUBIN,URINE NEGATIVE (NEGATIVE); COLOR,URINE YELLOW; GLUCOSE, URINE NEGATIVE (NEGATIVE); KETONES,URINE NEGATIVE (NEGATIVE); PROTEIN,URINE NEGATIVE (NEGATIVE); URINE SPECIFIC GRAVITY 1.013; UROBILINOGEN,URINE NEGATIVE mg/dL (<2.0)
[2020-01-12 23:34] LABS: ALBUMIN 4.3 g/dL (3.5-5.0); ALKALINE PHOSPHATASE 79 U/L (38-126); ANION GAP 8 (5-19); ASPARTATE AMINO TRANSFERASE 27 U/L (14-36); BILIRUBIN,DIRECT 0.1 mg/dL (0.0-0.4); BILIRUBIN,TOTAL 0.2 mg/dL (0.2-1.3); BLOOD UREA NITROGEN 17 mg/dL (7-20); CALCIUM 9.4 mg/dL (8.4-10.2); CARBON DIOXIDE 24 mmol/L (22-30); CHLORIDE 105 mmol/L (98-107); GLUCOSE 113 mg/dL (75-110); POTASSIUM 3.6 mmol/L (3.6-5.0); TOTAL PROTEIN 7.4 g/dL (6.3-8.2)
[2020-01-12] MEDS ORDERED: ONDANSETRON 4 MG TAB.RAPDIS PO ONE (23:39)
--- NOTE | 2020-01-13 00:15 | RADIOLOGY REPORT (SQ) ---
CT ABDOMEN AND PELVIS WITHOUT INTRAVENOUS CONTRAST: 01/12/2020 11:11 PM CDT HISTORY: 39-year old with left-sided flank pain. COMPARISON: None available TECHNIQUE: Axial contiguous images were obtained from the lung bases to the proximal femurs without oral or intravenous contrast administered. Sagittal and coronal reconstructions were also obtained and reviewed. This exam was performed according to our departmental dose-optimization program, which includes automated exposure control, adjustment of the mA and/or KV according to the patient's size and/or use of iterative reconstruction technique. FINDINGS: The lung bases appear clear without evidence of a focal consolidative airspace opacity or effusions. Evaluation of the solid organs is limited by the lack of intravenous contrast. The visualized hepatic parenchyma is unremarkable. The gallbladder demonstrates no evidence of calcified gallstones The spleen, pancreas, and adrenals are normal in size and contour. There is mild to moderate left hydronephrosis, secondary to an eight mm calculus at the proximal left ureteropelvic junction. There additional punctate bilateral renal calculi. No hydronephrosis is seen on the right side. Bladder is minimally distended, but grossly appears unremarkable. The uterus is present. The stomach is moderately distended. The small bowel loops appear unremarkable. No pericolonic inflammatory stranding is seen. The appendix is unremarkable. There is no evidence of pneumoperitoneum or free fluid. The aorta and IVC appear normal in size. No significantly enlarged lymph nodes are seen in the abdomen or pelvis. Review of the bone show no evidence of any suspicious lytic or blastic lesions. IMPRESSION: There is mild to moderate left hydronephrosis, secondary to an eight mm calculus at the proximal left ureteropelvic junction. There additional punctate bilateral renal calculi. No hydronephrosis is seen on the right side.
[2020-01-13] MEDS ORDERED: TAMSULOSIN HCL 0.4 MG CAP.SR.24H PO ONE (00:23)
[2020-01-13] MEDS ORDERED: MORPHINE SULFATE 10 MG/ML INJ IV ONE (00:23)
[2020-01-13] MEDS ORDERED: KETOROLAC TROMETHAMINE INJ/PF 30 MG/1 ML SDV IV ONE ×2 (00:23→04:46)
[2020-01-13] MEDS ORDERED: ONDANSETRON HCL INJ/PF 4 MG/2 ML SDV IV ONE (02:38)
[2020-01-13] MEDS ORDERED: HYDROMORPHONE HCL INJ/PF 2 MG/ML AMPULE IV ONE ×2 (02:38→04:46)
[2020-01-13] MEDS ORDERED: ONDANSETRON ODT 4 MG TAB (6 TAB/ER DISP) PO PRN (05:02)
[2020-01-13] MEDS ORDERED: HYDROCODONE/ACETAMINOPHEN 5-325 MG (6 TAB/ER DISP) PO PRN (05:02)
[2020-01-13 06:06] VITALS: BP 119/74
== END 2020-01-13 05:45 | disposition home or self-care (01) ==
LOC: ER 22:24
DX: N20.0 Calculus of kidney (principal); Z87.442 Personal history of urinary calculi; Z98.1 Arthrodesis status; R10.32 Left lower quadrant pain
CPT/HCPCS: 96376; 99284; 96361; 96374; 96375; 36415; 85025; 81025; 80053; 81001; 74176; S0119; J1885; J2270; J1170; J2405; J7030

== ENCOUNTER 2020-01-15 08:39 | Emergency (ER) | payer OTHER ==
[2020-01-15] MEDS ORDERED: KETOROLAC TROMETHAMINE INJ/PF 30 MG/1 ML SDV IV ONE (09:40)
[2020-01-15] MEDS ORDERED: NORMAL SALINE 1000 ML 1,000 ML IV ONE ×2 (09:40→13:18)
--- NOTE | 2020-01-15 09:47 | ER Document Report ---
ED GI/ - General Chief Complaint: Flank Pain Stated Complaint: FLANK PAIN Time Seen by Provider: 01/15/20 09:09 Notes: Patient is a 39-year-old female presents emergency department with a chief complaint of left flank pain. Patient was diagnosed with a kidney stone 8 mm in size 3 days ago and 6 days ago started having pain. Her primary care provider 6 days ago gave her a medication that started with a T to help with her pain, but did not help her much. She last took Percocet at 3:00 in the morning, and states that it helped only a little bit. Patient states that she continues to have pain. She followed up with her primary care provider who is in the process of putting in a referral for urology. Patient has not seen urology yet. Past surgical history includes a tubal ligation. TRAVEL OUTSIDE OF THE [place] IN LAST 30 DAYS: No - Related Data Allergies/Adverse Reactions: No Known Allergies Allergy (Verified 12/09/17 18:40) Past Medical History - Social History Smoking Status: Never Smoker Family History: Reviewed & Not Pertinent Patient has homicidal ideation: No Pulmonary Medical History: Reports: Hx Asthma - Pediatric, Hx Pneumonia Renal/ Medical History: Reports: Hx Kidney Stones. Denies: Hx Peritoneal Dialysis Past Surgical History: Reports: Hx Tubal Ligation - Immunizations Hx Diphtheria, Pertussis, Tetanus Vaccination: No Hx Pneumococcal Vaccination: 08/02/11 Review of Systems - Review of Systems Notes: REVIEW OF SYSTEMS: CONSTITUTIONAL : Denies recent illness. Denies recent unintentional weight loss. Denies fever, chills, or sweats. EENT: Denies eye, ear, throat, or mouth pain, discharge, or symptoms. Denies nasal or sinus congestion. CARDIOVASCULAR: Denies chest pain. RESPIRATORY: Denies shortness of breath, cough, congestion, difficulty breathing, or wheezing. GASTROINTESTINAL: Denies nausea, vomiting, and diarrhea. Denies abdominal pain. Denies constipation. GENITOURINARY: Denies difficulty urinating, burning, blood in urine, urgency or frequency. MUSCULOSKELETAL: See HPI. Denies joint pain or swelling. SKIN: Denies rash, itchiness, or lesions HEMATOLOGIC : Denies easy bruising or bleeding. LYMPHATIC: Denies swollen, painful, enlarged glands. NEUROLOGICAL: Denies no numbness or tingling denies weakness. Denies headache. Denies altered mental status. Denies alteration in speech. PSYCHIATRIC: Denies stress, anxiety, alteration in sleep patterns, or depression. All other systems reviewed and negative. Physical Exam - Vital signs Vitals: Temp Pulse Resp BP Pulse Ox 98.5 F 100 18 119/69 99 01/15/20 08:45 01/15/20 08:45 01/15/20 08:45 01/15/20 08:45 01/15/20 08:45 - Notes Notes: PHYSICAL EXAMINATION: GENERAL: Appears well, writhing around in pain. HEAD: Normocephalic, atraumatic. EYES: PERRL, conjunctiva normal, all extraocular movements intact, sclera nonicteric ENT: Dry mucous membranes. NECK: Supple, no noticeable swelling, redness, rash. Normal range of motion. LUNGS: Equal breath sounds bilaterally and clear to auscultation. No wheezes rales or rhonchi. CARDIOVASCULAR: S1-S2, regular rate, regular rhythm. Radial pulses 2+, normal. ABDOMEN: Normoactive bowel sounds. Soft, nontender, no guarding, no rebound tenderness, and no masses palpated. EXTREMITIES: Normal strength and range of motion, no pitting or edema. No cyanosis. NEUROLOGICAL: Moves all extremities upon command. Strength 5/5 in all extremities. PSYCH: Normal mood, normal affect. SKIN: Warm, dry. No rash, lesions, ulcerations noted. Normal skin turgor. BACK: Left low back pain. Course - Re-evaluation Re-evalutation: 01/15/20 11:32 Patient has a mild leukocytosis of 11,000. This is about the same as the other day. Chemistries show potassium at 3.5. Will give patient potassium replacement. Urinalysis shows moderate amount of blood and now a moderate of leukocytes in her urine. She only had a small amount of leukocytes in her urine the other day. We will give her Rocephin. I called [facility]. Transfer center will have the urologist call me back. 01/15/20 12:[address] Stover, the hospitalist. He states that he would like the patient transferred over to [facility]. He asked me to speak with Dr. brumfield, the radiologist. Dr. Brumfield suspects that the stone is still in the same position. 01/15/20 12:[address] Stover, hospitalist and he spoke with the urologist over at [facility]. They will accept the patient to the medical floor. 01/15/20 13:50 Transport team is at bedside. Patient has been assessed and is stable for transport to [facility]. - Vital Signs Vital signs: Temp Pulse Resp BP Pulse Ox 98.5 F 78 20 122/73 97 01/15/20 13:35 01/15/20 13:35 01/15/20 13:35 01/15/20 13:35 01/15/20 13:35 - Laboratory Result Diagrams: 01/15/20 10:01 01/15/20 10:01 Laboratory results interpreted by me: 01/15/20 01/15/20 01/15/20 10:01 10:01 10:01 WBC 11.0 H Lymph % (Auto) 12.3 L Absolute Neuts (auto) 8.6 H Potassium 3.5 L Glucose 134 H AST 37 H ALT 43 H Urine Protein 30 H Urine Ketones 20 H Urine Blood MODERATE H Ur Leukocyte Esterase MODERATE H Discharge - Discharge Clinical Impression: Kidney stone Urinary tract infection Qualifiers: Urinary tract infection type: site unspecified Hematuria presence: with hematuria Qualified Code(s): N39.0 - Urinary tract infection, site not specified Condition: Stable Disposition: [facility] Admitting Provider: Dr. Stover
[2020-01-15 10:23] LABS: ABSOLUTE BASOPHILS # (AUTO) 0.1 10^3/uL (0.0-0.2); ABSOLUTE EOSINOPHILS # (AUTO) 0.3 10^3/uL (0.0-0.6); ABSOLUTE LYMPHOCYTES (AUTO) 1.4 10^3/uL (0.5-4.7); ABSOLUTE MONOCYTES (AUTO) 0.7 10^3/uL (0.1-1.4); ABSOLUTE NEUT (AUTO) 8.6 10^3/uL (1.7-8.2); BASOPHILS % (AUTO) 0.8 % (0-2); EOSINOPHILS % (AUTO) 2.8 % (0-6); HEMATOCRIT 37.1 % (36.0-47.0); HEMOGLOBIN 12.7 g/dL (12.0-15.5); LYMPHOCYTES % (AUTO) 12.3 % (13-45); MEAN CORPUSCULAR HEMOGLOBIN 31.9 pg (27.0-33.4); MEAN CORPUSCULAR HGB CONC 34.3 g/dL (32.0-36.0); MEAN CORPUSCULAR VOLUME 93 fl (80-97); MONOCYTES % (AUTO) 6.7 % (3-13); PLATELET COUNT 273 10^3/uL (150-450); RED CELL DISTRIBUTION WIDTH 12.9 % (11.5-14.0); SEGMENTED NEUTROPHILS % (AUTO) 77.4 % (42-78); TOTAL CELLS COUNTED % (AUTO) 100 %
[2020-01-15 10:30] LABS: APPEARANCE,URINE SLIGHTLY-CLOUDY; BILIRUBIN,URINE NEGATIVE (NEGATIVE); COLOR,URINE YELLOW; GLUCOSE, URINE NEGATIVE (NEGATIVE); KETONES,URINE 20 mg/dL (NEGATIVE); LEUKOCYTE ESTERASE,URINE MODERATE (NEGATIVE); NITRITE,URINE NEGATIVE (NEGATIVE); PROTEIN,URINE 30 mg/dL (NEGATIVE); URINE SPECIFIC GRAVITY 1.023; UROBILINOGEN,URINE NEGATIVE mg/dL (<2.0)
--- NOTE | 2020-01-15 11:00 | RADIOLOGY REPORT (SQ) ---
EXAM DESCRIPTION: U/S RETROPERITON (RENAL/AORTA) IMAGES COMPLETED DATE/TIME: 01/15/2020 10:50 am REASON FOR STUDY: left flank pain; eval progression of stone COMPARISON: None. TECHNIQUE: Dynamic and static grayscale images acquired of the kidneys and bladder and recorded on P ACS. Additional selected color Doppler and spectral images recorded. LIMITATIONS: None. FINDINGS: RIGHT KIDNEY: Normal size. Normal echogenicity. No solid or suspicious masses. No hydronep hrosis. No calcifications. LEFT KIDNEY: Moderate left-sided hydronephrosis. Small nonobstructing stones in the upper and lower pole. BLADDER: Incompletely distended. OTHER FINDINGS: No other significant finding. IMPRESSION: Persistent left-sided hydronephrosis. Nonobstructing left renal calculi. Proximal left ureteral stone demonstrated on CT is not appreciated by ultrasound. TECHNICAL DOCUMENTATION: JOB ID: [id number] 2010 [employer]- All Rights Reserved Reading location - IP/workstation name: [email or web address]
[2020-01-15 11:01] LABS: ALBUMIN 4.1 g/dL (3.5-5.0); ALKALINE PHOSPHATASE 61 U/L (38-126); ANION GAP 7 (5-19); ASPARTATE AMINO TRANSFERASE 37 U/L (14-36); BILIRUBIN,DIRECT 0.1 mg/dL (0.0-0.4); BILIRUBIN,TOTAL 0.8 mg/dL (0.2-1.3); BLOOD UREA NITROGEN 15 mg/dL (7-20); CALCIUM 8.7 mg/dL (8.4-10.2); CARBON DIOXIDE 26 mmol/L (22-30); CHLORIDE 104 mmol/L (98-107); GLUCOSE 134 mg/dL (75-110); POTASSIUM 3.5 mmol/L (3.6-5.0); TOTAL PROTEIN 7.9 g/dL (6.3-8.2)
[2020-01-15] MEDS ORDERED: CEFTRIAXONE 1 GM/D5W RTU 1 GM/50 ML RTUPB IV ONE (11:18)
[2020-01-15] MEDS ORDERED: MORPHINE SULFATE 10 MG/ML INJ IV ONE ×2 (11:22→13:19)
[2020-01-15] MEDS ORDERED: POTASSIUM CHLORIDE 10 MEQ TABLET.ER PO ONE (11:26)
[2020-01-15] MEDS ORDERED: NORMAL SALINE 500 ML IV PRN (13:18)
[2020-01-15 13:48] VITALS: BP 122/73
== END 2020-01-15 13:39 | disposition short-term general hospital (02) ==
LOC: ER 08:39
DX: N39.0 Urinary tract infection, site not specified (principal); N20.0 Calculus of kidney; R10.9 Unspecified abdominal pain; Z87.442 Personal history of urinary calculi; Z98.51 Tubal ligation status
CPT/HCPCS: 96376; 99285; 96361; 96375; 96365; 36415; 85025; 80053; 81001; 76770; J1885; J2270; J7030; J0696